=== PATIENT | male | born 1975 | race Caucasian/White ===

== ENCOUNTER 2016-09-22 02:06 | Emergency (ER) | payer OTHER ==
[2016-09-22 01:55] LABS: BASOPHILS 0.3 %; BASOPHILS ABSOLUTE 0.02 10/3/uL (0.0-0.16); EOSINOPHILS ABSOLUTE 0.07 10/3/uL (0.0-0.53); HEMATOCRIT 39.3 % (40.0-51.0); HEMOGLOBIN 14.5 g/dL (13.6-17.8); IMMATURE GRANULOCYTES 0.1 %; IMMATURE GRANULOCYTES ABSOLUTE 0.01 10/3/uL (0.0-0.11); LYMPHOCYTES 18.2 %; LYMPHOCYTES ABSOLUTE 1.26 10/3/uL (0.67-4.30); MEAN CORPUS HGB CONC 36.9 g/dL (32.0-36.0); MEAN CORPUSCULAR HEMOGLOB 31.8 pg (26.0-34.0); MEAN CORPUSCULAR VOLUME 86.2 fL (80-100); MEAN PLATELET VOLUME 10.2 fL (9.2-13.0); MONOCYTES ABSOLUTE 0.55 10/3/uL (0.21-1.20); NEUTROPHILS 72.4 %; PLATELET COUNT 252 10/3/uL (150-400); RBC DISTRIBUTION WIDTH 11.9 % (12.0-16.0); RED CELL COUNT 4.56 10/6/uL (4.7-6.1); WHITE BLOOD CELLS 6.9 10/3/uL (4.5-10.5)
[2016-09-22 02:00] LABS: ER CBC TAT 0 Hrs 04 MinsNP; MANUAL DIFF NO %
[2016-09-22 02:10] LABS: A/G RATIO 1.1 (0.7-1.9); ALBUMIN 3.8 G/DL (3.5-5.0); ALKALINE PHOSPHATASE 84 U/L (45-117); BUN (BLOOD UREA NITROGEN) 6 MG/DL (6-23); CALCIUM, SERUM 8.7 MG/DL (8.5-10.4); CHLORIDE, SERUM 102 MMOL/L (96-112); CO2 (CARBON DIOXIDE) 26 MMOL/L (24-34); CREATININE 1.13 MG/DL (0.70-1.30); GFR AFRICAN AMERICAN 93 ML/MIN (>=60); GFR NON AFRICAN AMERICAN 80 ML/MIN (>=60); GLOBULIN 3.4 G/DL (2.5-4.1); GLUCOSE, SERUM 113 MG/DL (60-99); POTASSIUM, SERUM 3.3 MMOL/L (3.5-5.3); SALICYLATE 2.5 MG/DL (-); SGOT(AST) 19 U/L (5-40); SGPT(ALT) 23 U/L (5-65); SODIUM, SERUM 139 MMOL/L (135-148); TOTAL BILIRUBIN 0.4 MG/DL (0-1.2); TOTAL PROTEIN 7.2 G/DL (6.0-8.5)
[2016-09-22 02:18] LABS: ACETAMINOPHEN LEVEL (TYLENOL) < 2.0 MCG/ML (10.0-20.0); ALCOHOL < 10 MG/DL (0); DILANTIN (PHENYTOIN) < 0.4 MCG/ML (10.0-20.0)
[2016-09-22 05:33] LABS: ASCORBIC ACID (UR NOT ORDER) NEG (NEG); BILIRUBIN, URINE NEGATIVE (NEG); ER URINALYSIS TAT 0 Hrs 00 Mins; KETONE, URINE NEGATIVE (NEG); LEUKOCYTE ESTERASE(NOT OR NEG (NEG); NITRITE (URINE) NEG (NEG); WBC (NOT ORDERED) (RFLEX) 1 (0-5)
[2016-09-22 05:55] LABS: AMPHETAMINES (NOT ORD) POS (NEG); BARBITURATES (NOT ORDERED NEG (NEG); BENZODIAZEPINES (NOT ORD) NEG (NEG); CANNABINOIDS (THC) NEG (NEG); COCAINE (NOT ORDERED) NEG (NEG); OPIATES NEG (NEG); PHENCYCLIDINE(PCP) NEG (NEG); TRICYCLICS NEG (NEG)
== END 2016-09-22 06:37 | disposition home or self-care (01) ==
LOC: ER 02:06
PROVIDERS: Nurse Practitioner Acute Care
DX: G40.909 Epilepsy, unspecified, not intractable, without status epilepticus (principal); E87.6 Hypokalemia; Z91.14 Patient's other noncompliance with medication regimen; F17.200 Nicotine dependence, unspecified, uncomplicated
CPT/HCPCS: 70450; 70551; 71010; 80053; 80185; 80305; 80307; 81001; 85025; 96365; 99285; Q2009

== ENCOUNTER 2016-11-13 22:14 | Inpatient (IN) | payer OTHER ==
--- NOTE | ~2016-11-13 | DS ---
Discharge Summary [facility] [address] [place]. [address] NAME: RADHA THOMAS : 75 STATUS : DIS IN PAT#: [id number] AGE: 41 ADM/REG DATE : 11/13/16 MR#: [id number] REPORT SERV DATE: 11/27/16 DICTATED BY: SARAI BOYER JR. DATE: 11/26/16 REPORT STATUS : Draft TRANSCRIBED BY: MICKY DATE: 11/26/16 Data Collection from hospitalization DISCHARGE DIAGNOSES: 1. Perforated viscus. 2. Perforated duodenal ulcer. 3. Seizure disorder. 4. Cerebral palsy. 5. Tobacco use. CONSULTATIONS: None. PROCEDURES PERFORMED: Exploratory laparotomy and Trey patch repair of perforated ulcer on 11/13/2016. MEDICATIONS: Augmentin 875 mg twice a day, Protonix 40 mg daily, and Dilantin two tablets twice a day. CONDITION AT DISCHARGE: Stable. DISPOSITION: The patient was discharged home on a soft diet with activities as instructed. He would follow up with me on 11/27/2016. HOSPITAL COURSE: This is a 41-year-old man who presented to [facility] on the evening of this admission complaining of three to five days of pain, which initially was located in the right lower quadrant. It worsened and became persistent. It was accompanied by nausea, vomiting, and low-grade fever. He did have some bowel movement and was eating some. He denied any history of significant abdominal pain in the past. He was seen in the emergency room where he had tender abdomen and elevated white count. A CT scan was performed which demonstrated free intraperitoneal air and fluid consistent with perforated viscus, most consistent with perforated ulcer. He was transferred to [facility] for additional intervention and consideration for surgery. Treatment options were discussed and it was elected to proceed with surgical intervention. He was admitted to the hospital at this time for further evaluation and treatment. Upon admission, he was taken to the operating room where he underwent the above-mentioned procedure. He tolerated this well, and there were no complications. On postop day #1, he was progressing satisfactorily. His abdomen was soft. IV antibiotics were continued. Dilantin was continued. He was encouraged to increase his activity. On 11/15/2016, his wounds looked okay. He continued to progress. The Berg catheter was removed as well as the NG tube. He was started on sips of liquids. Over the next couple of days, he was voiding well. His diet was slowly advanced. Discharge planning was performed. He was changed to oral medications. He did have a T-max of 99. He was feeling okay. IV antibiotics were continued for peritonitis. The ileus secondary to perforated ulcer was resolving. On 11/20/2016, his white blood cell count had decreased. His wound looked okay. Discharge instructions were given. Due to his improved and stable condition, he was discharged home with the above-stated instructions. Discharge Summary [facility] [address] [place]. [address] NAME: RADHA THOMAS : 75 STATUS : DIS IN PAT#: [id number] AGE: 41 ADM/REG DATE : 11/13/16 MR#: [id number] REPORT SERV DATE: 11/27/16 DICTATED BY: SARAI BOYER JR. DATE: 11/26/16 REPORT STATUS : Draft TRANSCRIBED BY: MICKY DATE: 11/26/16 Information collected by: Demi Sharp I submit the above information as my discharge summary. CHICHO/MICKY Sarai Boyer Jr., M.D. / [id number] CC: Anna Marie Herrera Jr., M.D.
--- NOTE | ~2016-11-13 | HP ---
History And Physical [address] [place]. [address] NAME: RADHA THOMAS : 75 STATUS : ADM IN [facility]#: [id number] AGE: 41 ADM/REG DATE : 11/13/16 MR#: [id number] REPORT SERV DATE: 11/14/16 DICTATED BY: SARAI MONTOYA JR. DATE: 11/13/16 REPORT STATUS : Draft TRANSCRIBED BY: MODRuss DATE: 11/13/16 DATE OF ADMISSION: 11/13/2016 CHIEF COMPLAINT: Abdominal pain. HISTORY: This is a 41-year-old male. He presented to the [facility] early this evening with complaints of three to five days' history of pain, which initially was located in the right lower quadrant. It worsened and persistent. It was accompanied by nausea, vomiting, low-grade fever. He did have some bowel movement and was eating some. He denies any history of significant abdominal pain in the past. He was seen in the emergency room, where he had tender abdomen and elevated white count. He had a CT scan, which demonstrated free intraperitoneal air and fluid consistent with perforated viscus most consistent with perforated ulcer. [facility] was [facility] for additional intervention and consideration for surgery. PAST MEDICAL HISTORY: Remarkable for history of cerebral palsy, and also for history of seizure disorder. He has had previous laparoscopic cholecystectomy. ALLERGIES: HE HAS NO KNOWN ALLERGIES. MEDICATIONS: Dilantin daily. SOCIAL HISTORY: Tobacco positive. Alcohol none. FAMILY HISTORY: Noncontributory. REVIEW OF SYSTEMS: GENERAL: As above. HEENT: Negative. CARDIOVASCULAR: Negative. RESPIRATORY: Negative. ABDOMEN: As above. : Negative. SKIN: Negative. NEURO: No acute symptoms. PHYSICAL EXAMINATION: GENERAL: Shows a middle-aged male, who is in some mild distress. VITAL SIGNS: Blood pressure 141/102, heart rate is 94, respirations 18, temperature 97.6. HEAD AND NECK: Pupils are equal and reactive. There are no icteric changes. Mucous membranes are dry. NECK: Supple. There is no mass or thyromegaly. LUNGS: Clear bilaterally. CARDIOVASCULAR: Normal S1 and S2 without murmur. ABDOMEN: Soft, but tender in all quadrants consistent with some degree of peritonitis. EXTREMITIES: Show no clubbing, cyanosis, or edema. History And Physical [address] [place]. [address] NAME: RADHA THOMAS : 75 STATUS : ADM IN PAT#: [id number] AGE: 41 ADM/REG DATE : 11/13/16 MR#: [id number] REPORT SERV DATE: 11/14/16 DICTATED BY: SARAI MONTOYA JR. DATE: 11/13/16 REPORT STATUS : Draft TRANSCRIBED BY: MODL DATE: 11/13/16 NEUROLOGIC: He is alert and oriented. There are no focal findings. STUDIES: Reviewed. IMPRESSION: Acute abdominal pain with findings consistent with perforated viscus. We will proceed with exploratory laparotomy. The procedure has been discussed with the patient and his family, they understand and agree. HAKEME/MICKY Sarai Montoya Jr., M.D. / [id number] CC: Saria Montoya Jr., M.D.
--- NOTE | ~2016-11-13 | OP ---
Record Of Operation [facility] [address] [place]. [address] NAME: RADHA THOMAS : 75 STATUS : ADM IN [facility]#: [id number] AGE: 41 ADM/REG DATE : 11/13/16 MR#: [id number] REPORT SERV DATE: 11/14/16 DICTATED BY: SARAI BOYER JR. DATE: 11/13/16 REPORT STATUS : Draft TRANSCRIBED BY: MODL DATE: 11/13/16 DATE OF PROCEDURE: 11/13/2016 SURGEON: Sarai Boyer M.D. CHECK WRITER: Colten Thomas. PROCEDURE: Exploratory laparotomy and Trey patch repair of perforated ulcer. PREOPERATIVE DIAGNOSIS: Perforated viscus. POSTOPERATIVE DIAGNOSES: 1. Perforated viscus. 2. Perforated duodenal ulcer. ANESTHESIA: General. INDICATIONS: The patient presented with abdominal pain. Imaging showed perforated or free air and fluid as well as perforated viscus. Exploration for appropriate procedure was indicated. FINDINGS: On x-rays of the abdomen, there was evidence of murky greenish fluid. There was inflammation in the upper abdomen. This was explored, and there was found to be a perforated duodenal ulcer. This was partially sealed with adjacent falciform and inferior surface of the liver. There was a moderate amount of bile-stained fluid within the peritoneal cavity. Cultures were obtained. There was some mild dilatation of small bowel. No evidence of any perforation or obstruction. Colon was intact. A Trey patch repair utilizing omentum was utilized to repair the ulcer successfully, and the abdomen was thoroughly irrigated. DESCRIPTION OF PROCEDURE: With adequate general anesthesia, the patient was placed in supine position. The abdomen was prepped and sterilely. A midline incision was made. The dissection was carried down sharply through the subcutaneous tissues. The fascia and peritoneum were opened. The peritoneal cavity was entered, and the above-noted findings were encountered. The omentum was easily mobilized and placed to cover the defect. It was secured with mattress sutures of 2-0 silk in Trey fashion. In the abdomen, there were copious amounts of saline. Hemostasis was assured, and all pockets were aspirated. Cultures of fluid were obtained. The wound was closed by approximating the fascia with running 0 PDS suture, subcutaneous tissue with 3-0 Vicryl, and skin with dermal Monocryl. A KANE negative pressure dressing was placed. The patient left the operating room in satisfactory condition. ESTIMATED BLOOD LOSS: 30 mL. Record Of Operation [facility] [id number] [place]. [address] NAME: RADHA THOMAS : 75 STATUS : ADM IN PAT#: [id number] AGE: 41 ADM/REG DATE : 11/13/16 MR#: [id number] REPORT SERV DATE: 11/14/16 DICTATED BY: SARAI BOYER JR. DATE: 11/13/16 REPORT STATUS : Draft TRANSCRIBED BY: MICKY DATE: 11/13/16 HAKEEM/MICKY Sarai Boyer Jr., M.D. / [id number] CC: Sarai Boyer Jr., M.D.
[2016-11-14 00:50] LABS: BASOPHILS 0.1 %; BASOPHILS ABSOLUTE 0.01 10/3/uL (0.0-0.16); EOSINOPHILS 0.4 %; EOSINOPHILS ABSOLUTE 0.06 10/3/uL (0.0-0.53); HEMATOCRIT 41.6 % (40.0-51.0); HEMOGLOBIN 14.9 g/dL (13.6-17.8); IMMATURE GRANULOCYTES 0.5 %; IMMATURE GRANULOCYTES ABSOLUTE 0.08 10/3/uL (0.0-0.11); LYMPHOCYTES 2.8 %; LYMPHOCYTES ABSOLUTE 0.46 10/3/uL (0.67-4.30); MEAN CORPUS HGB CONC 35.8 g/dL (32.0-36.0); MEAN CORPUSCULAR HEMOGLOB 31.4 pg (26.0-34.0); MEAN CORPUSCULAR VOLUME 87.8 fL (80-100); MEAN PLATELET VOLUME 9.7 fL (9.2-13.0); MONOCYTES 7.5 %; MONOCYTES ABSOLUTE 1.25 10/3/uL (0.21-1.20); NEUTROPHILS 88.7 %; NEUTROPHILS ABSOLUTE 14.78 10/3/uL (2.02-8.40); PLATELET COUNT 288 10/3/uL (150-400); RBC DISTRIBUTION WIDTH 11.8 % (12.0-16.0); RED CELL COUNT 4.74 10/6/uL (4.7-6.1); WHITE BLOOD CELLS 16.6 10/3/uL (4.5-10.5)
[2016-11-14 00:57] LABS: MANUAL DIFF NO %
[2016-11-14 01:01] LABS: BUN (BLOOD UREA NITROGEN) 17 MG/DL (6-23); CALCIUM, SERUM 8.2 MG/DL (8.5-10.4); CHLORIDE, SERUM 96 MMOL/L (96-112); CO2 (CARBON DIOXIDE) 30 MMOL/L (24-34); GFR AFRICAN AMERICAN 145 ML/MIN (>=60); GFR NON AFRICAN AMERICAN 125 ML/MIN (>=60); GLUCOSE, SERUM 123 MG/DL (60-99); POTASSIUM, SERUM 3.6 MMOL/L (3.5-5.3); SODIUM, SERUM 131 MMOL/L (135-148)
[2016-11-14 05:57] LABS: BASOPHILS 0.1 %; BASOPHILS ABSOLUTE 0.01 10/3/uL (0.0-0.16); EOSINOPHILS 0 %; HEMATOCRIT 40.5 % (40.0-51.0); HEMOGLOBIN 14.5 g/dL (13.6-17.8); IMMATURE GRANULOCYTES 0.3 %; IMMATURE GRANULOCYTES ABSOLUTE 0.05 10/3/uL (0.0-0.11); LYMPHOCYTES ABSOLUTE 0.85 10/3/uL (0.67-4.30); MEAN CORPUS HGB CONC 35.8 g/dL (32.0-36.0); MEAN CORPUSCULAR HEMOGLOB 31.5 pg (26.0-34.0); MEAN CORPUSCULAR VOLUME 87.9 fL (80-100); MONOCYTES 5.8 %; MONOCYTES ABSOLUTE 0.99 10/3/uL (0.21-1.20); NEUTROPHILS 88.8 %; NEUTROPHILS ABSOLUTE 15.23 10/3/uL (2.02-8.40); PLATELET COUNT 295 10/3/uL (150-400); RED CELL COUNT 4.61 10/6/uL (4.7-6.1); WHITE BLOOD CELLS 17.1 10/3/uL (4.5-10.5)
[2016-11-14 05:58] LABS: MANUAL DIFF NO %
[2016-11-14 06:08] LABS: BUN (BLOOD UREA NITROGEN) 16 MG/DL (6-23); CALCIUM, SERUM 8.5 MG/DL (8.5-10.4); CHLORIDE, SERUM 97 MMOL/L (96-112); CO2 (CARBON DIOXIDE) 28 MMOL/L (24-34); GFR AFRICAN AMERICAN 145 ML/MIN (>=60); GFR NON AFRICAN AMERICAN 125 ML/MIN (>=60); GLUCOSE, SERUM 119 MG/DL (60-99); POTASSIUM, SERUM 4.3 MMOL/L (3.5-5.3); SODIUM, SERUM 131 MMOL/L (135-148)
[2016-11-14] MEDS ORDERED: D100 PO (15:43)
[2016-11-15 05:17] LABS: BASOPHILS 0.1 %; BASOPHILS ABSOLUTE 0.01 10/3/uL (0.0-0.16); EOSINOPHILS 0.9 %; EOSINOPHILS ABSOLUTE 0.09 10/3/uL (0.0-0.53); HEMOGLOBIN 12.5 g/dL (13.6-17.8); IMMATURE GRANULOCYTES 0.4 %; IMMATURE GRANULOCYTES ABSOLUTE 0.04 10/3/uL (0.0-0.11); LYMPHOCYTES ABSOLUTE 1.15 10/3/uL (0.67-4.30); MEAN CORPUS HGB CONC 34.7 g/dL (32.0-36.0); MEAN CORPUSCULAR HEMOGLOB 31.5 pg (26.0-34.0); MEAN PLATELET VOLUME 9.7 fL (9.2-13.0); MONOCYTES 11.8 %; MONOCYTES ABSOLUTE 1.24 10/3/uL (0.21-1.20); NEUTROPHILS 75.8 %; NEUTROPHILS ABSOLUTE 7.97 10/3/uL (2.02-8.40); PLATELET COUNT 231 10/3/uL (150-400); RBC DISTRIBUTION WIDTH 12.1 % (12.0-16.0); RED CELL COUNT 3.97 10/6/uL (4.7-6.1); WHITE BLOOD CELLS 10.5 10/3/uL (4.5-10.5)
[2016-11-15 05:19] LABS: MANUAL DIFF NO %; MEAN CORPUSCULAR VOLUME 90.7 fL (80-100)
[2016-11-15 05:27] LABS: A/G RATIO 0.5 (0.7-1.9); ALBUMIN 1.8 G/DL (3.5-5.0); ALKALINE PHOSPHATASE 65 U/L (45-117); BUN (BLOOD UREA NITROGEN) 17 MG/DL (6-23); CALCIUM, SERUM 8.2 MG/DL (8.5-10.4); CHLORIDE, SERUM 97 MMOL/L (96-112); CREATININE 0.55 MG/DL (0.70-1.30); GFR AFRICAN AMERICAN 150 ML/MIN (>=60); GFR NON AFRICAN AMERICAN 129 ML/MIN (>=60); GLOBULIN 3.5 G/DL (2.5-4.1); SGOT(AST) 13 U/L (5-40); SGPT(ALT) 13 U/L (5-65); SODIUM, SERUM 135 MMOL/L (135-148); TOTAL BILIRUBIN 0.6 MG/DL (0-1.2); TOTAL PROTEIN 5.3 G/DL (6.0-8.5)
[2016-11-15 05:28] LABS: CO2 (CARBON DIOXIDE) 34 MMOL/L (24-34); GLUCOSE, SERUM 93 MG/DL (60-99); POTASSIUM, SERUM 3.3 MMOL/L (3.5-5.3)
[2016-11-16 05:18] LABS: BASOPHILS 0.1 %; BASOPHILS ABSOLUTE 0.01 10/3/uL (0.0-0.16); EOSINOPHILS 0.6 %; EOSINOPHILS ABSOLUTE 0.07 10/3/uL (0.0-0.53); HEMATOCRIT 34.2 % (40.0-51.0); IMMATURE GRANULOCYTES 0.6 %; IMMATURE GRANULOCYTES ABSOLUTE 0.07 10/3/uL (0.0-0.11); LYMPHOCYTES 10.1 %; LYMPHOCYTES ABSOLUTE 1.22 10/3/uL (0.67-4.30); MEAN CORPUS HGB CONC 35.1 g/dL (32.0-36.0); MEAN CORPUSCULAR HEMOGLOB 31.2 pg (26.0-34.0); MEAN CORPUSCULAR VOLUME 88.8 fL (80-100); MEAN PLATELET VOLUME 9.4 fL (9.2-13.0); MONOCYTES 8.5 %; MONOCYTES ABSOLUTE 1.03 10/3/uL (0.21-1.20); NEUTROPHILS 80.1 %; NEUTROPHILS ABSOLUTE 9.68 10/3/uL (2.02-8.40); PLATELET COUNT 260 10/3/uL (150-400); RBC DISTRIBUTION WIDTH 12.2 % (12.0-16.0); RED CELL COUNT 3.85 10/6/uL (4.7-6.1); WHITE BLOOD CELLS 12.1 10/3/uL (4.5-10.5)
[2016-11-16 05:23] LABS: MANUAL DIFF NO %
[2016-11-16 05:36] LABS: CALCIUM, SERUM 8.3 MG/DL (8.5-10.4); CHLORIDE, SERUM 95 MMOL/L (96-112); CO2 (CARBON DIOXIDE) 30 MMOL/L (24-34); CREATININE 0.59 MG/DL (0.70-1.30); GFR AFRICAN AMERICAN 146 ML/MIN (>=60); GFR NON AFRICAN AMERICAN 126 ML/MIN (>=60); POTASSIUM, SERUM 3.4 MMOL/L (3.5-5.3); SODIUM, SERUM 133 MMOL/L (135-148)
[2016-11-16 05:37] LABS: BUN (BLOOD UREA NITROGEN) 8 MG/DL (6-23); GLUCOSE, SERUM 115 MG/DL (60-99)
[2016-11-17 06:04] LABS: CALCIUM, SERUM 7.5 MG/DL (8.5-10.4); CHLORIDE, SERUM 103 MMOL/L (96-112); CREATININE 0.24 MG/DL (0.70-1.30); GFR AFRICAN AMERICAN 211 ML/MIN (>=60); GFR NON AFRICAN AMERICAN 182 ML/MIN (>=60); POTASSIUM, SERUM 3.8 MMOL/L (3.5-5.3); SODIUM, SERUM 136 MMOL/L (135-148)
[2016-11-17 06:07] LABS: BUN (BLOOD UREA NITROGEN) 2 MG/DL (6-23); CO2 (CARBON DIOXIDE) 19 MMOL/L (24-34); GLUCOSE, SERUM 78 MG/DL (60-99)
[2016-11-17 06:33] LABS: BASOPHILS 0.1 %; BASOPHILS ABSOLUTE 0.01 10/3/uL (0.0-0.16); EOSINOPHILS 1.1 %; EOSINOPHILS ABSOLUTE 0.12 10/3/uL (0.0-0.53); HEMATOCRIT 36.2 % (40.0-51.0); HEMOGLOBIN 12.5 g/dL (13.6-17.8); IMMATURE GRANULOCYTES 0.6 %; IMMATURE GRANULOCYTES ABSOLUTE 0.06 10/3/uL (0.0-0.11); LYMPHOCYTES 9.5 %; LYMPHOCYTES ABSOLUTE 1.01 10/3/uL (0.67-4.30); MEAN CORPUS HGB CONC 34.5 g/dL (32.0-36.0); MEAN CORPUSCULAR HEMOGLOB 30.9 pg (26.0-34.0); MEAN CORPUSCULAR VOLUME 89.4 fL (80-100); MONOCYTES 9.3 %; MONOCYTES ABSOLUTE 0.99 10/3/uL (0.21-1.20); NEUTROPHILS 79.4 %; NEUTROPHILS ABSOLUTE 8.42 10/3/uL (2.02-8.40); PLATELET COUNT 282 10/3/uL (150-400); RBC DISTRIBUTION WIDTH 12.1 % (12.0-16.0); RED CELL COUNT 4.05 10/6/uL (4.7-6.1); WHITE BLOOD CELLS 10.6 10/3/uL (4.5-10.5)
[2016-11-17 06:34] LABS: MANUAL DIFF NO %
[2016-11-19 07:41] LABS: BASOPHILS 0.1 %; BASOPHILS ABSOLUTE 0.02 10/3/uL (0.0-0.16); EOSINOPHILS 0.9 %; EOSINOPHILS ABSOLUTE 0.14 10/3/uL (0.0-0.53); HEMATOCRIT 36.8 % (40.0-51.0); HEMOGLOBIN 12.6 g/dL (13.6-17.8); IMMATURE GRANULOCYTES 1.1 %; IMMATURE GRANULOCYTES ABSOLUTE 0.17 10/3/uL (0.0-0.11); LYMPHOCYTES 8.9 %; LYMPHOCYTES ABSOLUTE 1.37 10/3/uL (0.67-4.30); MEAN CORPUS HGB CONC 34.2 g/dL (32.0-36.0); MEAN CORPUSCULAR HEMOGLOB 30.6 pg (26.0-34.0); MEAN CORPUSCULAR VOLUME 89.3 fL (80-100); MEAN PLATELET VOLUME 9.1 fL (9.2-13.0); MONOCYTES 7.7 %; MONOCYTES ABSOLUTE 1.19 10/3/uL (0.21-1.20); NEUTROPHILS 81.3 %; PLATELET COUNT 418 10/3/uL (150-400); RBC DISTRIBUTION WIDTH 12.5 % (12.0-16.0); RED CELL COUNT 4.12 10/6/uL (4.7-6.1); WHITE BLOOD CELLS 15.4 10/3/uL (4.5-10.5)
[2016-11-19 07:43] LABS: MANUAL DIFF NO %
[2016-11-19 07:56] LABS: BUN (BLOOD UREA NITROGEN) 7 MG/DL (6-23); CALCIUM, SERUM 8.5 MG/DL (8.5-10.4); CHLORIDE, SERUM 101 MMOL/L (96-112); CO2 (CARBON DIOXIDE) 28 MMOL/L (24-34); CREATININE 0.56 MG/DL (0.70-1.30); GFR AFRICAN AMERICAN 149 ML/MIN (>=60); GFR NON AFRICAN AMERICAN 128 ML/MIN (>=60); GLUCOSE, SERUM 100 MG/DL (60-99); POTASSIUM, SERUM 4.2 MMOL/L (3.5-5.3); SODIUM, SERUM 135 MMOL/L (135-148)
[2016-11-20 06:17] LABS: ALBUMIN 2.1 G/DL (3.5-5.0); BUN (BLOOD UREA NITROGEN) 8 MG/DL (6-23); CALCIUM, SERUM 9.3 MG/DL (8.5-10.4); CHLORIDE, SERUM 100 MMOL/L (96-112); CO2 (CARBON DIOXIDE) 29 MMOL/L (24-34); GFR AFRICAN AMERICAN 145 ML/MIN (>=60); GFR NON AFRICAN AMERICAN 125 ML/MIN (>=60); GLUCOSE, SERUM 91 MG/DL (60-99); POTASSIUM, SERUM 4.2 MMOL/L (3.5-5.3); SGOT(AST) 26 U/L (5-40); SGPT(ALT) 26 U/L (5-65); SODIUM, SERUM 137 MMOL/L (135-148); TOTAL BILIRUBIN 0.2 MG/DL (0-1.2)
[2016-11-20 06:17] LABS: MEAN CORPUS HGB CONC 34.2 g/dL (32.0-36.0); MEAN CORPUSCULAR HEMOGLOB 30.7 pg (26.0-34.0); MEAN CORPUSCULAR VOLUME 89.6 fL (80-100); MEAN PLATELET VOLUME 9.2 fL (9.2-13.0); PLATELET COUNT 467 10/3/uL (150-400); RBC DISTRIBUTION WIDTH 12.6 % (12.0-16.0); RED CELL COUNT 4.24 10/6/uL (4.7-6.1); WHITE BLOOD CELLS 14.9 10/3/uL (4.5-10.5)
[2016-11-20 06:18] LABS: A/G RATIO 0.4 (0.7-1.9); ALKALINE PHOSPHATASE 94 U/L (45-117); GLOBULIN 4.7 G/DL (2.5-4.1); TOTAL PROTEIN 6.8 G/DL (6.0-8.5)
[2016-11-20 06:18] LABS: DIFFERENTIAL ORDERED Y
[2016-11-20 07:18] LABS: BAND NEUTROPHILS 6 %; EOSINOPHILS 1 %; EOSINOPHILS ABSOLUTE (CALC) 0.15 10/3/uL (0.0-0.53); IMMATURE GRANS ABSOLUTE (CALC) 0.15 10/3/uL (0.0-0.11); LYMPHOCYTES 12 %; LYMPHOCYTES ABSOLUTE (CALC) 1.79 10/3/uL (0.67-4.30); METAMYELOCYTES 1 %; MONOCYTES 7 %; MONOCYTES ABSOLUTE (CALC) 1.04 10/3/uL (0.21-1.20); NEUTROPHILS ABSOLUTE (CALC) 11.77 10/3/uL (2.02-8.40); PLATELET ESTIMATE SLT INC (ADEQUATE); RBC MORPHOLOGY NORM (NORMAL); SEGMENTED NEUTROPHIL (0) 73 %; TOTAL NUCLEATED CELLS 100
[2016-11-20] MEDS ORDERED: PROTONIX PO (09:18)
[2016-11-20] MEDS ORDERED: AUG875 PO (09:18)
== END 2016-11-20 10:50 | disposition home or self-care (01) | DRG 330 ==
LOC: SDC/OF 22:14 → 5SO 11-14 01:11
PROVIDERS: Specialist
PROC: 0DU907Z Supplement Duodenum with Autologous Tissue Substitute, Open Approach (ICD-10-PCS; principal; 2016-11-13 22:20)
DX: K26.5 Chronic or unspecified duodenal ulcer with perforation (principal); K56.7 Ileus, unspecified; F17.210 Nicotine dependence, cigarettes, uncomplicated; G80.9 Cerebral palsy, unspecified; G40.909 Epilepsy, unspecified, not intractable, without status epilepticus; Z90.49 Acquired absence of other specified parts of digestive tract; Z98.890 Other specified postprocedural states; Z88.8 Allergy status to other drugs, medicaments and biological substances
CPT/HCPCS: 80048; 80053; 83735; 84132; 85007; 85025; 85027; 87015; 87070; 87075; 87102; 87116; 87205; A9270-GY; C9113; J0330; J0360; J1885; J2250; J2270; J2370; J2405; J2543; J2710; J3010; J3475; Q2009

== ENCOUNTER 2016-12-03 17:56 | Inpatient (IN) | payer OTHER ==
--- NOTE | ~2016-12-03 | HP ---
History And Physical [address] [place]. [address] NAME: RADHA THOMAS : 75 STATUS : ADM [facility] PAT#: [id number] AGE: 41 ADM/REG DATE : 12/03/16 MR#: [id number] REPORT SERV DATE: 12/04/16 DICTATED BY: SARAI MONTOYA JR. DATE: 12/04/16 REPORT STATUS : Draft TRANSCRIBED BY: MODL DATE: 12/04/16 DATE OF ADMISSION: 12/03/2016 CHIEF COMPLAINT: Abdominal pain, fever. HISTORY OF PRESENT ILLNESS: This is a 41-year-old male. He actually had recent surgery two to three weeks ago for perforated duodenal ulcer. He had Trey patch repair. He had a fairly uneventful recovery. He was discharged home and he developed abdominal pain, which progressed. He had anorexia, came to the emergency room, was found to have a fever, hyponatremia, had a CT scan which showed hepatic abscess. He is admitted for additional evaluation and treatment. Actually, he had been maintained on Augmentin postoperatively for positive culture. PAST MEDICAL HISTORY: Remarkable for seizure disorder and cerebral palsy. FAMILY HISTORY: He has family history of hypertension. SOCIAL HISTORY: He does smoke. No alcohol. No drugs. PAST SURGICAL HISTORY: He has a previous laparoscopic cholecystectomy. REVIEW OF SYSTEMS: GENERAL: Weakness, fever, chills. HEENT: Negative. NEURO: History of seizures. SKIN: Negative. PULMONARY: Negative. CV: Negative. GI: Nausea, diarrhea, abdominal pain. : Some flank pain. MUSCULOSKELETAL: Negative. ENDOCRINE: Negative. HEMATOLOGIC: Negative. IMMUNOLOGIC: Negative. PSYCHIATRIC: Negative. PHYSICAL EXAMINATION: GENERAL: Shows a somewhat ill-appearing male. HEAD AND NECK: Shows pupils are equal and reactive. Mucous membranes are dry. The neck is supple. There is no mass or thyromegaly. LUNGS: Clear bilaterally. CARDIOVASCULAR: Normal S1 and S2 without murmur. ABDOMEN: Shows tenderness on the right side. There is no mass. He has a healed midline incision. EXTREMITIES: Show no clubbing, cyanosis, or edema. NEUROLOGIC: He is alert, oriented, no focal findings, appropriate affect. History And Physical [address] [place]. [address] NAME: RADHA THOMAS : 75 STATUS : ADM [facility] PAT#: [id number] AGE: 41 ADM/REG DATE : 12/03/16 MR#: [id number] REPORT SERV DATE: 12/04/16 DICTATED BY: SARAI MONTOYA JR. DATE: 12/04/16 REPORT STATUS : Draft TRANSCRIBED BY: MICKY DATE: 12/04/16 Laboratories were reviewed and the CT images. IMPRESSION: Hepatic abscess after perforated ulcer. PLAN: We will proceed with the patient has been admitted. We will give IV fluids, IV antibiotics, and we will obtain CT guided drainage of the abscess. Maintain Zosyn, Vanco. Pending cultures. HAKEEM/MICKY Sarai Montoya Jr., M.D. / [id number] CC: Anna Marie Herrera Jr., M.D.
--- NOTE | ~2016-12-03 | DS ---
Discharge Summary [facility] [address] [place]. [address] NAME: RADHA THOMAS : 75 STATUS : DIS IN PAT#: [id number] AGE: 41 ADM/REG DATE : 12/03/16 MR#: [id number] REPORT SERV DATE: 12/24/16 DICTATED BY: SARAI BOYER JR. DATE: 12/24/16 REPORT STATUS : Draft TRANSCRIBED BY: MICKY DATE: 12/24/16 Data Collection from hospitalization DISCHARGE DIAGNOSES: 1. Hepatic abscess. 2. Seizure disorder. 3. Cerebral palsy. 4. Tobacco use. CONSULTATIONS: None. PROCEDURES PERFORMED: 1. CT scan of the abdomen and pelvis without contrast on 12/03/2016. 2. CT-guided drainage of the hepatic abscess on 12/04/2016. 3. Abscessogram on 12/10/2016. MEDICATIONS: Augmentin 875 mg twice a day, Excelsior 5/325 one tablet every six hours as needed, and Dilantin 200 mg twice a day. CONDITION AT DISCHARGE: Stable. DISPOSITION: The patient was discharged home on a regular diet with activities as instructed. He would follow up with me as scheduled. HOSPITAL COURSE: This is a 41-year-old man who had undergone surgery two to three weeks prior to this admission for perforated duodenal ulcer. He had a Trey patch repair. He had a fairly uneventful recovery. He had been discharged home and then developed abdominal pain, which progressed. He had anorexia. He came to the emergency room and was found to have a fever, hyponatremia, and a CT scan which revealed hepatic abscess. He was admitted to the hospital at this time for further evaluation and treatment. Upon admission, IV fluids were started as well as IV antibiotics. He had been maintained on Augmentin postoperatively for a positive culture. We were going to maintain Zosyn and vancomycin, pending cultures. It was felt that he would need to undergo CT-guided drainage of the abscess. The following day, CT-guided drainage of the hepatic abscess was performed and 230 mL of purulent material was aspirated. Specimen was submitted for culture and stain. On 12/05/2016, he had no complaints. He was afebrile. His abdomen was soft, nondistended, and nontender. He began to feel better. He remained afebrile. His current antibiotics were continued. On 12/07/2016, Zosyn was continued. Vancomycin was stopped. Drain output had decreased. Cultures had revealed strep. On 12/08/2016, abscessogram was performed. He continued to do well. He remained afebrile. Discharge planning was performed. Drain check was performed. On 12/10/2016, his drain had been removed. He was afebrile. Discharge instructions were given. Augmentin was continued. Due to his improved and stable condition, he was discharged home with the above- stated instructions. Information collected by: Demi Sharp Discharge Summary [facility] [id number] [place]. [address] NAME: RADHA THOMAS : 75 STATUS : DIS IN PAT#: [id number] AGE: 41 ADM/REG DATE : 12/03/16 MR#: [id number] REPORT SERV DATE: 12/24/16 DICTATED BY: SARAI BOYER JR. DATE: 12/24/16 REPORT STATUS : Draft TRANSCRIBED BY: MICKY DATE: 12/24/16 I submit the above information as my discharge summary. CHICHO/MICKY Sarai Boyer Jr., M.D. / [id number] CC: Anna Marie Herrera Jr., M.D.
[~2016-12-03 17:56] MED LIST: AUG875 PO; D100 PO; PROTONIX PO
[2016-12-03 19:38] LABS: BASOPHILS 0.2 %; BASOPHILS ABSOLUTE 0.02 10/3/uL (0.0-0.16); EOSINOPHILS 0 %; ER CBC TAT 0 Hrs 01 Mins; HEMATOCRIT 35.4 % (40.0-51.0); HEMOGLOBIN 12.4 g/dL (13.6-17.8); IMMATURE GRANULOCYTES 0.5 %; IMMATURE GRANULOCYTES ABSOLUTE 0.06 10/3/uL (0.0-0.11); LYMPHOCYTES 12.1 %; LYMPHOCYTES ABSOLUTE 1.48 10/3/uL (0.67-4.30); MEAN CORPUSCULAR HEMOGLOB 29.7 pg (26.0-34.0); MONOCYTES 14.3 %; MONOCYTES ABSOLUTE 1.74 10/3/uL (0.21-1.20); NEUTROPHILS 72.9 %; PLATELET COUNT 341 10/3/uL (150-400); RBC DISTRIBUTION WIDTH 13.3 % (12.0-16.0); RED CELL COUNT 4.17 10/6/uL (4.7-6.1); WHITE BLOOD CELLS 12.2 10/3/uL (4.5-10.5)
[2016-12-03 19:41] LABS: MANUAL DIFF NO %; MEAN CORPUSCULAR VOLUME 84.9 fL (80-100)
[2016-12-03 20:01] LABS: ALBUMIN 2.4 G/DL (3.5-5.0); BUN (BLOOD UREA NITROGEN) 8 MG/DL (6-23); CALCIUM, SERUM 8.9 MG/DL (8.5-10.4); CO2 (CARBON DIOXIDE) 30 MMOL/L (24-34); CREATININE 0.74 MG/DL (0.70-1.30); DIRECT BILIRUBIN 0.1 MG/DL (0.0-0.4); GFR AFRICAN AMERICAN 133 ML/MIN (>=60); GFR NON AFRICAN AMERICAN 115 ML/MIN (>=60); GLUCOSE, SERUM 95 MG/DL (60-99); INDIRECT BILIRUBIN(NOT ORDER) 0.3 MG/DL (0.1-0.9); POTASSIUM, SERUM 3.5 MMOL/L (3.5-5.3); SGPT(ALT) 41 U/L (5-65); TOTAL BILIRUBIN 0.4 MG/DL (0-1.2)
[2016-12-03 20:02] LABS: A/G RATIO 0.4 (0.7-1.9); ALKALINE PHOSPHATASE 142 U/L (45-117); CHLORIDE, SERUM 89 MMOL/L (96-112); GLOBULIN 5.8 G/DL (2.5-4.1); SGOT(AST) 55 U/L (5-40); SODIUM, SERUM 129 MMOL/L (135-148); TOTAL PROTEIN 8.2 G/DL (6.0-8.5)
[2016-12-03 20:03] LABS: LACTATE 1.6 MMOL/L (0.3-2.4)
[2016-12-03 20:16] LABS: PROCALCITONIN 0.51 ng/mL (<0.5)
[2016-12-03 20:41] LABS: DILANTIN (PHENYTOIN) < 0.4 MCG/ML (10.0-20.0)
[2016-12-03] MEDS ORDERED: D100 PO (20:52)
[2016-12-03] MEDS ORDERED: AUG875 PO (20:55)
[2016-12-04 03:47] LABS: BUN (BLOOD UREA NITROGEN) 7 MG/DL (6-23); CALCIUM, SERUM 8.7 MG/DL (8.5-10.4); CHLORIDE, SERUM 97 MMOL/L (96-112); CO2 (CARBON DIOXIDE) 29 MMOL/L (24-34); CREATININE 0.65 MG/DL (0.70-1.30); GFR AFRICAN AMERICAN 140 ML/MIN (>=60); GFR NON AFRICAN AMERICAN 121 ML/MIN (>=60); GLUCOSE, SERUM 96 MG/DL (60-99); POTASSIUM, SERUM 3.6 MMOL/L (3.5-5.3); SODIUM, SERUM 135 MMOL/L (135-148)
[2016-12-05 04:21] LABS: BASOPHILS 0.1 %; BASOPHILS ABSOLUTE 0.01 10/3/uL (0.0-0.16); EOSINOPHILS 0 %; HEMOGLOBIN 10.5 g/dL (13.6-17.8); IMMATURE GRANULOCYTES ABSOLUTE 0.09 10/3/uL (0.0-0.11); LYMPHOCYTES 3.8 %; LYMPHOCYTES ABSOLUTE 0.34 10/3/uL (0.67-4.30); MEAN CORPUS HGB CONC 34.4 g/dL (32.0-36.0); MEAN CORPUSCULAR HEMOGLOB 29.4 pg (26.0-34.0); MEAN CORPUSCULAR VOLUME 85.4 fL (80-100); MEAN PLATELET VOLUME 9.7 fL (9.2-13.0); MONOCYTES 4.2 %; MONOCYTES ABSOLUTE 0.37 10/3/uL (0.21-1.20); NEUTROPHILS 90.9 %; NEUTROPHILS ABSOLUTE 8.05 10/3/uL (2.02-8.40); PLATELET COUNT 259 10/3/uL (150-400); RBC DISTRIBUTION WIDTH 13.2 % (12.0-16.0); RED CELL COUNT 3.57 10/6/uL (4.7-6.1); WHITE BLOOD CELLS 8.9 10/3/uL (4.5-10.5)
[2016-12-05 04:22] LABS: HEMATOCRIT 30.5 % (40.0-51.0); MANUAL DIFF NO %
[2016-12-05 04:33] LABS: BUN (BLOOD UREA NITROGEN) 8 MG/DL (6-23); CALCIUM, SERUM 7.9 MG/DL (8.5-10.4); CHLORIDE, SERUM 93 MMOL/L (96-112); CO2 (CARBON DIOXIDE) 28 MMOL/L (24-34); CREATININE 0.89 MG/DL (0.70-1.30); GFR AFRICAN AMERICAN 123 ML/MIN (>=60); GFR NON AFRICAN AMERICAN 106 ML/MIN (>=60); GLUCOSE, SERUM 110 MG/DL (60-99); POTASSIUM, SERUM 3.4 MMOL/L (3.5-5.3); SODIUM, SERUM 129 MMOL/L (135-148); VANCOMYCIN TROUGH 14.5 MCG/ML (10.0-20.0)
[2016-12-05 12:33] LABS: POTASSIUM, SERUM 3.5 MMOL/L (3.5-5.3); VANCOMYCIN TROUGH 15.5 MCG/ML (10.0-20.0)
[2016-12-06 05:13] LABS: BASOPHILS 0.2 %; BASOPHILS ABSOLUTE 0.01 10/3/uL (0.0-0.16); EOSINOPHILS 2.7 %; EOSINOPHILS ABSOLUTE 0.13 10/3/uL (0.0-0.53); HEMATOCRIT 30.2 % (40.0-51.0); HEMOGLOBIN 10.1 g/dL (13.6-17.8); IMMATURE GRANULOCYTES 0.4 %; IMMATURE GRANULOCYTES ABSOLUTE 0.02 10/3/uL (0.0-0.11); LYMPHOCYTES 17.6 %; LYMPHOCYTES ABSOLUTE 0.85 10/3/uL (0.67-4.30); MANUAL DIFF NO %; MEAN CORPUS HGB CONC 33.4 g/dL (32.0-36.0); MEAN CORPUSCULAR HEMOGLOB 28.9 pg (26.0-34.0); MEAN CORPUSCULAR VOLUME 86.5 fL (80-100); MEAN PLATELET VOLUME 10.3 fL (9.2-13.0); MONOCYTES 10.8 %; MONOCYTES ABSOLUTE 0.52 10/3/uL (0.21-1.20); NEUTROPHILS 68.3 %; NEUTROPHILS ABSOLUTE 3.29 10/3/uL (2.02-8.40); PLATELET COUNT 270 10/3/uL (150-400); RBC DISTRIBUTION WIDTH 13.4 % (12.0-16.0); RED CELL COUNT 3.49 10/6/uL (4.7-6.1); WHITE BLOOD CELLS 4.8 10/3/uL (4.5-10.5)
[2016-12-06 05:26] LABS: BUN (BLOOD UREA NITROGEN) 9 MG/DL (6-23); CALCIUM, SERUM 7.9 MG/DL (8.5-10.4); CHLORIDE, SERUM 95 MMOL/L (96-112); CO2 (CARBON DIOXIDE) 30 MMOL/L (24-34); CREATININE 1.11 MG/DL (0.70-1.30); GFR AFRICAN AMERICAN 95 ML/MIN (>=60); GFR NON AFRICAN AMERICAN 82 ML/MIN (>=60); POTASSIUM, SERUM 3.4 MMOL/L (3.5-5.3); SODIUM, SERUM 132 MMOL/L (135-148)
[2016-12-06 05:27] LABS: GLUCOSE, SERUM 141 MG/DL (60-99)
[2016-12-07 09:12] LABS: BASOPHILS 0.4 %; BASOPHILS ABSOLUTE 0.02 10/3/uL (0.0-0.16); EOSINOPHILS 3.1 %; EOSINOPHILS ABSOLUTE 0.15 10/3/uL (0.0-0.53); HEMATOCRIT 31.6 % (40.0-51.0); HEMOGLOBIN 10.7 g/dL (13.6-17.8); IMMATURE GRANULOCYTES 0.8 %; IMMATURE GRANULOCYTES ABSOLUTE 0.04 10/3/uL (0.0-0.11); LYMPHOCYTES 25.1 %; LYMPHOCYTES ABSOLUTE 1.22 10/3/uL (0.67-4.30); MEAN CORPUS HGB CONC 33.9 g/dL (32.0-36.0); MEAN CORPUSCULAR HEMOGLOB 29.1 pg (26.0-34.0); MEAN CORPUSCULAR VOLUME 85.9 fL (80-100); MEAN PLATELET VOLUME 9.9 fL (9.2-13.0); MONOCYTES 13.8 %; MONOCYTES ABSOLUTE 0.67 10/3/uL (0.21-1.20); NEUTROPHILS 56.8 %; NEUTROPHILS ABSOLUTE 2.77 10/3/uL (2.02-8.40); PLATELET COUNT 297 10/3/uL (150-400); RBC DISTRIBUTION WIDTH 13.6 % (12.0-16.0); RED CELL COUNT 3.68 10/6/uL (4.7-6.1); WHITE BLOOD CELLS 4.9 10/3/uL (4.5-10.5)
[2016-12-07 09:15] LABS: MANUAL DIFF NO %
[2016-12-07 09:22] LABS: BUN (BLOOD UREA NITROGEN) 8 MG/DL (6-23); CALCIUM, SERUM 8.4 MG/DL (8.5-10.4); CHLORIDE, SERUM 103 MMOL/L (96-112); CO2 (CARBON DIOXIDE) 26 MMOL/L (24-34); CREATININE 0.88 MG/DL (0.70-1.30); GFR AFRICAN AMERICAN 124 ML/MIN (>=60); GFR NON AFRICAN AMERICAN 107 ML/MIN (>=60); GLUCOSE, SERUM 86 MG/DL (60-99); POTASSIUM, SERUM 4.1 MMOL/L (3.5-5.3); SODIUM, SERUM 136 MMOL/L (135-148)
[2016-12-08 06:13] LABS: BASOPHILS 0.3 %; BASOPHILS ABSOLUTE 0.02 10/3/uL (0.0-0.16); EOSINOPHILS 3.1 %; EOSINOPHILS ABSOLUTE 0.21 10/3/uL (0.0-0.53); HEMOGLOBIN 10.8 g/dL (13.6-17.8); IMMATURE GRANULOCYTES 1.6 %; IMMATURE GRANULOCYTES ABSOLUTE 0.11 10/3/uL (0.0-0.11); LYMPHOCYTES 22.7 %; LYMPHOCYTES ABSOLUTE 1.54 10/3/uL (0.67-4.30); MANUAL DIFF NO %; MEAN CORPUS HGB CONC 33.8 g/dL (32.0-36.0); MEAN CORPUSCULAR HEMOGLOB 29.3 pg (26.0-34.0); MEAN PLATELET VOLUME 9.2 fL (9.2-13.0); MONOCYTES 11.3 %; MONOCYTES ABSOLUTE 0.77 10/3/uL (0.21-1.20); NEUTROPHILS ABSOLUTE 4.14 10/3/uL (2.02-8.40); PLATELET COUNT 375 10/3/uL (150-400); RBC DISTRIBUTION WIDTH 13.6 % (12.0-16.0); RED CELL COUNT 3.68 10/6/uL (4.7-6.1); WHITE BLOOD CELLS 6.8 10/3/uL (4.5-10.5)
[2016-12-08 06:14] LABS: BUN (BLOOD UREA NITROGEN) 9 MG/DL (6-23); CALCIUM, SERUM 8.5 MG/DL (8.5-10.4); CHLORIDE, SERUM 103 MMOL/L (96-112); CO2 (CARBON DIOXIDE) 28 MMOL/L (24-34); CREATININE 0.83 MG/DL (0.70-1.30); GFR AFRICAN AMERICAN 127 ML/MIN (>=60); GFR NON AFRICAN AMERICAN 109 ML/MIN (>=60); GLUCOSE, SERUM 93 MG/DL (60-99); POTASSIUM, SERUM 3.9 MMOL/L (3.5-5.3); SODIUM, SERUM 138 MMOL/L (135-148)
[2016-12-10] MEDS ORDERED: NORCO1 TA1 PO (09:36)
== END 2016-12-10 11:51 | disposition home or self-care (01) | DRG 442 ==
LOC: ER 17:56 → CDU1 21:50 → 4SO 12-05 23:02
PROVIDERS: Nurse Practitioner; Specialist; Surgery
PROC: 0F9030Z Drainage of Liver with Drainage Device, Percutaneous Approach (ICD-10-PCS; principal; 2016-12-04)
DX: K75.0 Abscess of liver (principal); E87.1 Hypo-osmolality and hyponatremia; J44.9 Chronic obstructive pulmonary disease, unspecified; G47.33 Obstructive sleep apnea (adult) (pediatric); I25.10 Atherosclerotic heart disease of native coronary artery without angina pectoris; E78.00 Pure hypercholesterolemia, unspecified; K21.9 Gastro-esophageal reflux disease without esophagitis; Z79.899 Other long term (current) drug therapy; I25.2 Old myocardial infarction; Z87.891 Personal history of nicotine dependence; Z85.46 Personal history of malignant neoplasm of prostate; Z90.79 Acquired absence of other genital organ(s); Z88.0 Allergy status to penicillin; Z88.5 Allergy status to narcotic agent; Z86.010 Personal history of colon polyps
CPT/HCPCS: 49405; 49418; 49424; 71010; 74176; 76080; 80048; 80053; 80185; 80202; 81001; 82248; 83605; 83690; 83735; 84132; 84145; 85025; 87015; 87040; 87070; 87075; 87102; 87116; 87205; 96374; 96375; 99291; A9270-GY; C1729; J2250; J2405; J2543; J3010; J3370; Q9967